=== PATIENT | female | born 1995 | race Two or more races ===

== ENCOUNTER 2022-01-29 04:51 | Observation (INO) | payer MEDICAID, OTHER ==
[~2022-01-29] VITALS: Ht 157.5 cm; Wt 63.5 kg
[2022-01-29] MEDS ORDERED: PREN-96 PO (05:43)
[2022-01-29] MEDS ORDERED: ACET-1158 PO (09:13)
== END 2022-01-29 06:45 | disposition home or self-care (01) ==
LOC: LDRP 04:51
PROVIDERS: ADMIT Obstetrics & Gynecology; ATTEND Obstetrics & Gynecology
DX: O26.892 Other specified pregnancy related conditions, second trimester (principal); R51.9 Headache, unspecified; Z3A.19 19 weeks gestation of pregnancy; Z91.040 Latex allergy status; V49.9XXA Car occupant (driver) (passenger) injured in unspecified traffic accident, initial encounter; Y93.89 Activity, other specified; Y92.410 Unspecified street and highway as the place of occurrence of the external cause
CPT/HCPCS: 76805; G0378

== ENCOUNTER 2022-01-29 06:54 | Emergency (ER) | payer MEDICAID, OTHER ==
[~2022-01-29] VITALS: Ht 157.5 cm; Wt 65.0 kg
[~2022-01-29 06:54] MED LIST: PREN-96 PO
[2022-01-29 06:55] VITALS: BP 126/77
[2022-01-29] MEDS ORDERED: ACET-1158 PO (09:13)
== END 2022-01-29 09:23 | disposition home or self-care (01) ==
LOC: ER 06:54
DX: O26.892 Other specified pregnancy related conditions, second trimester (principal); S00.83XA Contusion of other part of head, initial encounter; Z79.899 Other long term (current) drug therapy; Z88.1 Allergy status to other antibiotic agents; Z3A.16 16 weeks gestation of pregnancy; V89.2XXA Person injured in unspecified motor-vehicle accident, traffic, initial encounter; Y93.89 Activity, other specified; Y92.410 Unspecified street and highway as the place of occurrence of the external cause; Y99.8 Other external cause status

== ENCOUNTER → 2023-05-14 | Emergency (ER) | payer MEDICAID, OTHER ==
[~2023-05-14] VITALS: Ht 157.5 cm; Wt 65.1 kg
[~2023-05-14] MED LIST changes: +ACET500T58 PO; +AMOX500T3 PO; +CIPR1SUS8 OT; +IBUP1TAB5 PO
[2023-05-14 08:06] VITALS: BP 126/78; PULSE 103; RESP 18; TEMP 98.1; O2SAT 98
[2023-05-14] MEDS: KETOROLAC TROMETH 60MG/2ML VIAL IM ONE (09:17)
== END | disposition home or self-care (01) ==
LOC: ER 07:42
DX: H66.92 Otitis media, unspecified, left ear (principal); Z79.1 Long term (current) use of non-steroidal anti-inflammatories (NSAID); Z79.2 Long term (current) use of antibiotics; Z79.899 Other long term (current) drug therapy; Z88.1 Allergy status to other antibiotic agents
CPT/HCPCS: 96372; 99283; J1885